=== PATIENT | male | born 1965 | race Caucasian/White ===

== ENCOUNTER 2024-11-01 00:23 | Emergency (ER) | payer SELFPAY ==
--- NOTE | ~2024-11-01 | CT_ITS ---
CLINICAL HISTORY: trauma CT head without contrast Comparison: None Findings: There is no acute intracranial hemorrhage. Ventricles are of normal size and shape. No mass effect or midline shift is present. The geiger-white matter differentiation appears normal. There is a small mucous retention cyst in the left maxillary sinus. Mastoids are clear. Orbits are unremarkable. No fractures are identified. IMPRESSION: No acute intracranial abnormality. This document has been electronically signed by: Art Harris MD on 11/01/2024 02:59:16
--- NOTE | ~2024-11-01 | CT_ITS ---
CLINICAL HISTORY: trauma CT cervical spine without contrast Comparison: None Findings: The alignment of the cervical spine is normal. There is no fracture. There is [id number] C5-6 and C6-7 degenerative disc disease. There is multilevel facet and uncovertebral joint osteoarthritis with associated neuroforaminal stenoses. Visualized soft tissues of the neck are unremarkable. IMPRESSION: No evidence of cervical spine injury. This document has been electronically signed by: Art Harris MD on 11/01/2024 02:54:30
[2024-11-01] MEDS: Haloperidol Lactate 5 MG/ML VIAL IM (00:35)
[2024-11-01] MEDS: Midazolam HCl 5 MG/ML VIAL 2.5 MG IM (00:35)
[2024-11-01 00:50] VITALS: BP 121/62; PULSE 88; RESP 18; TEMP 36.3; O2SAT 99; BMI 33.5
--- NOTE | 2024-11-01 02:25 | PC.NURSE ---
late entry: chiller technician called to the front of the emergency room by staff. Upon arrival outside this RN could see , REJI Morales, and 3 RNs along with this patient and his . The pt was awake and alert, slurring his words and stumbling. 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 The pt was argumentative with staff, threatening to leave his as she was begging and pleading with him to be seen/evaluated to rule out a head bleed or more serious injury. Despite attempts by multiple staff members to educate the patient and advise him of the importance of evaluation he continued to refuse, the was not willing to be the responsible sober democrat to take responsibility of the pt's care and oversight. pt aimee medicated per MAR, after verbal order obtained by REJI, pt was then placed in a stretcher and wheeled back to the room where he was triaged and educated further on the information while pending CT scan of head.
--- NOTE | 2024-11-01 03:05 | ED.GENADULT ---
HPI - General Adult General Chief complaint: ETOH/Substance Use Stated complaint: ETOH Time Seen by Provider: 11/01/24 00:43 Source: patient and family Limitations: other (intoxication) History of Present Illness ED Provider: Madelyn Morales PA-C HPI narrative: 58-year-old male presents after fall. Per the patient's , they were at a wedding, the patient was drinking heavily. At the end of the bilingual medical receptionist, she could not find her , she took 1 of the shuttles back to the hotel. Shortly thereafter, she received a call from the hotel staff, they found her on the ground unconscious. The patient is currently quite hostile and belligerent, unwilling to be medically assessed. Related Data Allergies Allergy/AdvReac Type Severity Reaction Status Date / Time No Known Allergies Allergy Verified 11/01/24 00:56 Review of Systems Review of Systems: Unable to obtain Yes all other systems are reviewed and are negative PMFSH Past Medical History Attestation statement: The following information was validated with the patient. Social History Social History Advance Directives: No Advance Directives Information Provided: Yes Physical Exam ED Vital Signs: Vital Signs - 24 hr 11/01/24 00:50 11/01/24 03:07 Temperature 97.4 F 97.9 F Pulse Rate 88 70 Respiratory Rate 18 20 Blood Pressure 121/62 99/52 L Pulse Oximetry 99 95 Oxygen Delivery Method Room Air Room Air BMI result Body Mass Index 33.5 Const Other: Awake, no obvious sign of head trauma Orientation/consciousness: patient oriented x3 HENMT Other: Alcohol halitosis Neck Neck: Yes full ROM Resp Effort & Inspection: normal respiratory effort Cardio Other: Normal peripheral perfusion Skin Other: Warm dry no rash Neuro General: patient oriented x3, gait normal, no focal motor deficits and CN's II-XI intact bilaterally Psych Other: Hostile, belligerent, uncooperative Medications Administered Discontinued Medications Generic Name Dose Route Start Last Admin Trade Name Freq PRN Reason Stop Dose Admin Haloperidol Lactate 5 mg 11/01/24 00:30 11/01/24 00:35 Haloperidol Lactate 5 Mg/Ml Vial IM 11/01/24 00:31 5 mg ONCE ONE Administration Midazolam HCl 2.5 mg 11/01/24 00:30 11/01/24 00:35 Midazolam Hcl 5 Mg/Ml Vial IM 11/01/24 00:31 2.5 mg ONCE ONE Administration Medical Decision Making Medical Decision Making MDM Narrative: 58-year-old male presents after fall. Per the patient's , they were at a wedding, the patient was drinking heavily. At the end of the bilingual medical receptionist, she could not find her , she took 1 of the shuttles back to the hotel. Shortly thereafter, she received a call from the hotel staff, they found her on the ground unconscious. The patient is currently quite hostile and belligerent, unwilling to be medically assessed. Problem: Alcohol intoxication History: Per patient's I have considered the following differential diagnoses: Intracranial hemorrhage, cervical spine injury Plan: The patient requires imaging, it is concerning the manner in which he was found, he is not medically appropriate to make his own decisions, we are having to medicate and restrain, for his health and well being, so we can scan his head and neck. I have independently reviewed the following tests: CT brain:IMPRESSION: No acute intracranial abnormality. CT cervical spine:Findings: The alignment of the cervical spine is normal. There is no fracture. There is [id number] C5-6 and C6-7 degenerative disc disease. There is multilevel facet and uncovertebral joint osteoarthritis with associated neuroforaminal stenoses. Visualized soft tissues of the neck are unremarkable. IMPRESSION: No evidence of cervical spine injury. Discharge Plan Discharge Clinical Impression: Alcoholic intoxication, Unwitnessed fall Patient Disposition: Home, Self-Care Instructions: Alcohol Intoxication (ED) Additional Instructions: You were found unconscious on the ground, it was unclear if you struck your head during the fall. A CT scan of the brain and cervical spine were obtained, you did not sustain any acute injury. You were noted to have degenerative changes of the cervical spine, arthritis. Follow up with your primary care provider as needed. Discharge Date/Time: 11/01/24 03:20 Print Language: Japanese
[2024-11-01 03:07] VITALS: BP 99/52; PULSE 70; RESP 20; TEMP 36.6; O2SAT 95
== END 2024-11-01 03:20 | disposition home or self-care (01) ==
PROVIDERS: Emergency Provider Emergency Medicine
DX: F10.120 Alcohol abuse with intoxication, uncomplicated (principal); Y90.9 Presence of alcohol in blood, level not specified; R45.1 Restlessness and agitation; Z91.81 History of falling
CPT/HCPCS: 70450; 72125; 96372; 99283; 99284; J1630; J2250

== ENCOUNTER → 2024-11-01 00:44 | Outpatient (BNV) | payer SELFPAY | PROVIDERS: Visit Provider Radiology Diagnostic Radiology | DX: M50.322 Other cervical disc degeneration at C5-C6 level (principal); J34.1 Cyst and mucocele of nose and nasal sinus | CPT/HCPCS: 70450; 72125 ==